=== PATIENT | female | born 1990 | race Caucasian/White ===

== ENCOUNTER 2017-08-18 16:24 | Emergency (ER) | payer MEDICAID ==
[~2017-08-18] VITALS: Ht 154.9 cm; Wt 98.6 kg
[~2017-08-18 16:24] MED LIST: PRENATAL VITAMINS
[2017-08-18] MEDS ORDERED: ONDANSETRON 2MG/ML, 2ML IVPush ONE (17:00)
[2017-08-18] MEDS ORDERED: FAMOTIDINE 20 MG/2 ML IVP ONE (17:00)
[2017-08-18] MEDS ORDERED: SODIUM CHLORIDE FLUSH 10ML SYR IVF ONE (17:00)
[2017-08-18] MEDS ORDERED: MAALOX/HYOSCYAMINE/LIDOCAINE 45 ML BTL PO ONE (17:00)
[2017-08-18] MEDS ORDERED: SODIUM CHLORIDE 0.9% 1,000ML IVBOLUS ONE (17:00)
[2017-08-18 17:12] LABS: ASPARTATE AMINO TRANSFERASE 16 U/L (15-37); BLOOD UREA NITROGEN 14 mg/dL (7-18)
[2017-08-18 17:16] LABS: HEMATOCRIT 40.8 % (34.6-47.8); HEMOGLOBIN 13.8 g/dL (11.7-16.4); WHITE BLOOD COUNT 10.8 x10^3/uL (3.4-10)
[2017-08-18] MEDS ORDERED: FAMOTIDINE 20 MG/2 ML ONE (17:20)
[2017-08-18] MEDS ORDERED: MAALOX/HYOSCYAMINE/LIDOCAINE 45 ML BTL ONE (17:20)
[2017-08-18] MEDS ORDERED: ONDANSETRON 2MG/ML, 2ML ONE (17:20)
[2017-08-18 19:17] VITALS: BP 105/56
== END 2017-08-18 19:17 | disposition home or self-care (01) ==
LOC: ED 18:17
DX: R11.2 Nausea with vomiting, unspecified (principal); R19.7 Diarrhea, unspecified; Z90.49 Acquired absence of other specified parts of digestive tract
CPT/HCPCS: 36415; 80053; 83690; 84703; 85025; 96361; 96374; 96375; 99284; J2405; J7030; S0028

== ENCOUNTER 2017-08-23 14:22 | Emergency (ER) | payer MEDICAID ==
[~2017-08-23] VITALS: Ht 154.9 cm; Wt 101.2 kg
[2017-08-23 14:25] VITALS: BP 121/81
[2017-08-23] MEDS ORDERED: OXYcodone/APAP 5/325MG TABLET PO ONE (15:00)
[2017-08-23] MEDS ORDERED: OXYcodone/APAP 5/325MG TABLET ONE (15:10)
== END 2017-08-23 15:20 | disposition home or self-care (01) ==
LOC: ED 15:16
DX: K08.89 Other specified disorders of teeth and supporting structures (principal)
CPT/HCPCS: 99283

== ENCOUNTER 2018-07-11 09:45 | Emergency (ER) | payer MEDICAID ==
[~2018-07-11] VITALS: Ht 154.9 cm; Wt 102.1 kg
[2018-07-11 10:30] LABS: BASOPHILS # (AUTO) 0.04 x10^3/uL (0-0.1); BASOPHILS % (AUTO) 1 % (0-1); EOSINOPHILS % (AUTO) 2 % (1-7); LYMPHOCYTES # (AUTO) 2.53 x10^3/uL (1-3.4); LYMPHOCYTES % (AUTO) 39 % (22-44); MD NO; MEAN CORPUSCULAR HEMOGLOBIN 26.6 pg (27.0-34.8); MEAN CORPUSCULAR HGB CONC 32.8 g/dL (32.4-35.8); MEAN CORPUSCULAR VOLUME 81.2 fL (80-100); MEAN PLATELET VOLUME 7.4 fL (7.4-10.4); MONOCYTES # (AUTO) 0.66 x10^3/uL (0.2-0.8); MONOCYTES % (AUTO) 10 % (2-9); NEUTROPHILS # (AUTO) 3.25 x10^3/uL (1.8-6.8); NEUTROPHILS % (AUTO) 49 % (42-75); PLATELET COUNT 309 x10^3/uL (130-400); RED BLOOD COUNT 4.66 x10^6/uL (3.82-5.3); RED CELL DISTRIBUTION WIDTH 16.4 % (9.6-15.2)
[2018-07-11] MEDS ORDERED: SODIUM CHLORIDE FLUSH 10ML SYR IVF ONE (10:30)
[2018-07-11] MEDS ORDERED: ONDANSETRON ODT 4 MG PO ONE (10:30)
[2018-07-11] MEDS ORDERED: SODIUM CHLORIDE 0.9% 1,000ML IVBOLUS ONE (10:30)
[2018-07-11 10:40] LABS: ALBUMIN 3.4 g/dL (3.4-5.0); ANION GAP 5 mmol/L (5-15); CALCIUM 8.5 mg/dL (8.5-10.1); CHLORIDE 109 mmol/L (98-107)
[2018-07-11] MEDS ORDERED: ONDANSETRON ODT 4 MG ONE (10:43)
[2018-07-11 10:45] LABS: CREATININE 0.67 mg/dL (0.55-1.02)
[2018-07-11 11:28] LABS: MICROSCOPIC INDICATED
[2018-07-11 11:46] LABS: CULTURE INDICATED? YES
[2018-07-11 12:00] VITALS: BP 110/72
== END 2018-07-11 12:51 | disposition home or self-care (01) ==
LOC: ED 10:01
DX: E86.0 Dehydration (principal); K52.9 Noninfective gastroenteritis and colitis, unspecified; R51 Headache; Z90.49 Acquired absence of other specified parts of digestive tract
CPT/HCPCS: 36415; 80048; 81001; 82040; 84703; 85025; 87086; 93005; 99285; J7030; Q0162

== ENCOUNTER 2018-07-26 08:35 | Emergency (ER) | payer MEDICAID ==
[~2018-07-26] VITALS: Ht 154.9 cm; Wt 79.5 kg
[2018-07-26 08:45] VITALS: BP 127/73
== END 2018-07-26 10:21 | disposition home or self-care (01) ==
LOC: ED 10:19
DX: K08.89 Other specified disorders of teeth and supporting structures (principal)
CPT/HCPCS: 99283

== ENCOUNTER 2018-08-28 08:56 | Emergency (ER) | payer MEDICAID ==
[~2018-08-28] VITALS: Ht 157.5 cm; Wt 102.1 kg
[2018-08-28 08:58] VITALS: BP 116/75
== END 2018-08-28 09:50 | disposition home or self-care (01) ==
LOC: ED 09:25
DX: K08.89 Other specified disorders of teeth and supporting structures (principal); Z90.49 Acquired absence of other specified parts of digestive tract
CPT/HCPCS: 99283

== ENCOUNTER 2018-12-26 11:35 | Emergency (ER) | payer MEDICAID ==
[~2018-12-26] VITALS: Ht 157.5 cm; Wt 99.0 kg
[2018-12-26 11:43] VITALS: BP 120/86
[2018-12-26 12:01] LABS: MEAN CORPUSCULAR HEMOGLOBIN 27.1 pg (27.0-34.8); MEAN CORPUSCULAR HGB CONC 33.5 g/dL (32.4-35.8); MEAN PLATELET VOLUME 7.7 fL (7.4-10.4); PLATELET COUNT 356 x10^3/uL (130-400); RED CELL DISTRIBUTION WIDTH 15.4 % (9.6-15.2)
[2018-12-26 12:02] LABS: HEMOGRAM NOTE RECHECKED
[2018-12-26 12:13] LABS: ALANINE AMINOTRANSFERASE 18 U/L (12-78); ALBUMIN 3.7 g/dL (3.4-5.0); ANION GAP 7 mmol/L (5-15); CALCIUM 8.6 mg/dL (8.5-10.1); CHLORIDE 109 mmol/L (98-107); CREATININE 0.76 mg/dL (0.55-1.02)
[2018-12-26 12:16] LABS: ALKALINE PHOSPHATASE 81 U/L (45-117); BILIRUBIN,TOTAL 0.5 mg/dL (0.2-1.0); TOTAL PROTEIN 7.8 g/dL (6.4-8.2)
--- NOTE | 2018-12-26 12:27 | NUR ---
PT PRESENTED TO ED D/T RIGHT MOLAR PAIN. PT STATES WAS SEEN BY DENTIST AND WAS PRESCRIBED CLIDAMYCIN AND NORCO FOR PAIN. PT STATES INCREASED PAIN WITH ABD PAIN AND NAUSEA. PT WAS ADVISED TO FOLLOW UP WITH ORAL SURGEON BUT UNABLE TO GET IN AT THIS TIME.
[2018-12-26 12:28] LABS: BASOPHILS # (AUTO) 0.06 x10^3/uL (0-0.1); BASOPHILS % (AUTO) 1 % (0-1); EOSINOPHILS # (AUTO) 0.05 x10^3/uL (0-0.4); EOSINOPHILS % (AUTO) 1 % (1-7); LYMPHOCYTES # (AUTO) 2.66 x10^3/uL (1-3.4); LYMPHOCYTES % (AUTO) 33 % (22-44); MD SCAN; MONOCYTES # (AUTO) 0.64 x10^3/uL (0.2-0.8); MONOCYTES % (AUTO) 8 % (2-9); NEUTROPHILS # (AUTO) 4.68 x10^3/uL (1.8-6.8); NEUTROPHILS % (AUTO) 58 % (42-75)
[2018-12-26] MEDS ORDERED: MAALOX/HYOSCYAMINE/LIDOCAINE 45 ML BTL ONE (12:46)
[2018-12-26] MEDS ORDERED: ONDANSETRON ODT 4 MG ONE (12:46)
--- NOTE | 2018-12-26 12:48 | NUR ---
PT MEDICATED PER EMAR.
[2018-12-26] MEDS ORDERED: MAALOX/HYOSCYAMINE/LIDOCAINE 45 ML BTL PO ONE (13:00)
[2018-12-26] MEDS ORDERED: ONDANSETRON ODT 4 MG PO ONE (13:00)
--- NOTE | 2018-12-26 13:26 | NUR ---
PT DC HOME IN A STABLE CONDITION. DC INSTRUCTIONS WERE DISCUSSED WITH PT. PT VERBALIZED UNDERSTANDING. NO FURTHER QUESTIONS OR CONCERNS WERE EXPRESSED AT THAT TIME. PT AMBULATED WITH RN TO DC DESK. STEADY GAIT.
== END 2018-12-26 13:28 | disposition home or self-care (01) ==
LOC: ED 13:20
DX: R10.84 Generalized abdominal pain (principal); R11.0 Nausea; R42 Dizziness and giddiness
CPT/HCPCS: 36415; 80053; 85025; 99283; Q0162

== ENCOUNTER 2019-03-25 00:37 | Emergency (ER) | payer MEDICAID ==
[~2019-03-25] VITALS: Ht 154.9 cm; Wt 80.0 kg
[2019-03-25 00:42] VITALS: BP 117/73
--- NOTE | 2019-03-25 00:53 | NUR ---
Dr. Ulrich at bedside to evaluate pt.
--- NOTE | 2019-03-25 01:21 | NUR ---
Patient/Caregiver given discharge instructions and they have confirmed that they understand the instructions. Patient ambulatory with steady gait.
== END 2019-03-25 01:22 | disposition home or self-care (01) ==
LOC: ED 01:16
DX: G51.0 Bell's palsy (principal)
CPT/HCPCS: 99283

== ENCOUNTER 2019-09-04 08:07 | Emergency (ER) | payer MEDICAID ==
[~2019-09-04] VITALS: Ht 154.9 cm; Wt 101.5 kg
[2019-09-04 08:08] VITALS: BP 109/71
--- NOTE | 2019-09-04 08:17 | NUR ---
BOX TRUCK DRIVER:PT AMBULATORY TO ROOM FROM LOBBY
--- NOTE | 2019-09-04 09:05 | NUR ---
Patient/Caregiver given discharge instructions and they have confirmed that they understand the instructions. Patient ambulatory with steady gait.
== END 2019-09-04 09:15 | disposition home or self-care (01) ==
LOC: ED 08:45
DX: R05 Cough (principal); J00 Acute nasopharyngitis [common cold]
CPT/HCPCS: 71046; 99283

== ENCOUNTER 2020-12-02 10:24 | Emergency (ER) | payer MEDICAID ==
[~2020-12-02] VITALS: Ht 154.9 cm; Wt 104.3 kg
--- NOTE | 2020-12-02 10:48 | NUR ---
PT COMES IN TODAY C/O N/V X2 WKS. PT STATES SHE IS 7 WKS AND "I HAVE NEVER BEEN THIS SICK BEFORE WITH A . IM BIGGER THIS TIME SO IM WORRIED I MIGHT HAVE GESTATIONAL DIABETES." PT AMBULATED BATHROOM WITH STEADY GAIT. MONITORS CONNECTED. CALL LIGHT W/IN REACH
[2020-12-02] MEDS ORDERED: ONDANSETRON ODT 4 MG PO ONE (11:00)
[2020-12-02] MEDS ORDERED: SODIUM CHLORIDE 0.9% 1,000ML IVBOLUS ONE (11:00)
[2020-12-02] MEDS ORDERED: ONDANSETRON 2MG/ML, 2ML ONE (11:03)
--- NOTE | 2020-12-02 11:16 | NUR ---
PROVIDER AT BEDSIDE FOR ASSESSEMENT. PLAN OF CARE DISCUSSED. QUESTIONS ANSWERED
[2020-12-02 11:23] LABS: MICROSCOPIC AUTO
[2020-12-02 11:27] LABS: BASOPHILS % (AUTO) 1 % (0-1); EOSINOPHILS % (AUTO) 1 % (1-7); LYMPHOCYTES % (AUTO) 29 % (22-44); MD NO; MEAN CORPUSCULAR HEMOGLOBIN 26.9 pg (27.0-34.8); MEAN PLATELET VOLUME 7.3 fL (7.4-10.4); MONOCYTES % (AUTO) 7 % (2-9); NEUTROPHILS % (AUTO) 63 % (42-75); PLATELET COUNT 330 x10^3/uL (130-400); RED BLOOD COUNT 4.89 x10^6/uL (3.82-5.3); RED CELL DISTRIBUTION WIDTH 15.8 % (9.6-15.2)
[2020-12-02 11:39] LABS: ALBUMIN 3.5 g/dL (3.4-5.0); ANION GAP 7 mmol/L (5-15); CALCIUM 9.1 mg/dL (8.5-10.1); CHLORIDE 106 mmol/L (98-107)
[2020-12-02 11:58] LABS: ALANINE AMINOTRANSFERASE 21 U/L (12-78); ALKALINE PHOSPHATASE 72 U/L (45-117); BILIRUBIN,TOTAL 0.4 mg/dL (0.2-1.0); CREATININE 0.73 mg/dL (0.55-1.02); TOTAL PROTEIN 7.9 g/dL (6.4-8.2)
--- NOTE | 2020-12-02 12:06 | NUR ---
ULTRASOUND AT BEDSIDE
--- NOTE | 2020-12-02 12:21 | NUR ---
RN AT BEDSIDE TO ASSIST W/VAG US
[2020-12-02 12:51] VITALS: BP 103/61
--- NOTE | 2020-12-02 12:51 | NUR ---
PT RESTING ON NOAH. PT STATES "I FEEL MUCH BETTER AFTER THAT NAUSEA MEDICINE". VSS. NAD. CALL LIGHT W/IN REACH.
--- NOTE | 2020-12-02 13:43 | NUR ---
PT AMBULATED TO DISCHARGE W/STEADY GAIT. PT ENCOURAGED TO FOLLOWUP DISCUSSED. PT EDUCATED TO RETURN TO THE ED W/WORSENING SYMPTOMS
== END 2020-12-02 13:46 | disposition home or self-care (01) ==
LOC: ED 11:40
DX: O21.1 Hyperemesis gravidarum with metabolic disturbance (principal); Z3A.01 Less than 8 weeks gestation of pregnancy
CPT/HCPCS: 36415; 76815; 80053; 81001; 82962; 84702; 85025; 86901; 87086; 96360; 99284; J7030; Q0162

== ENCOUNTER 2020-12-12 14:40 | Emergency (ER) | payer MEDICAID ==
[~2020-12-12] VITALS: Ht 154.9 cm; Wt 105.5 kg
[2020-12-12] MEDS ORDERED: ONDANSETRON 2MG/ML, 2ML ONE (15:09)
--- NOTE | 2020-12-12 15:27 | NUR ---
pt is a 30f complaining of nausea and vomiting for the last 3 days. She was referred by her OBGYN. She was seen a week ago for the same thing and was doing fine but its worse in the last 3 days.Continuous sp02, and cycling vitals in place. call light within reach.
[2020-12-12] MEDS ORDERED: SODIUM CHLORIDE 0.9% 1,000ML IVBOLUS ONE (15:30)
[2020-12-12] MEDS ORDERED: ONDANSETRON 2MG/ML, 2ML IVPush ONE (15:30)
[2020-12-12] MEDS ORDERED: CYAN1TAB29 PO (15:31)
[2020-12-12] MEDS ORDERED: ONDA4TAB7 PO (15:31)
[2020-12-12 15:47] LABS: BASOPHILS % (AUTO) 1 % (0-1); EOSINOPHILS % (AUTO) 1 % (1-7); LYMPHOCYTES % (AUTO) 31 % (22-44); MEAN CORPUSCULAR HEMOGLOBIN 26.9 pg (27.0-34.8); MEAN CORPUSCULAR HGB CONC 32.5 g/dL (32.4-35.8); MEAN PLATELET VOLUME 7.3 fL (7.4-10.4); MONOCYTES % (AUTO) 9 % (2-9); NEUTROPHILS % (AUTO) 59 % (42-75); PLATELET COUNT 313 x10^3/uL (130-400); RED BLOOD COUNT 4.56 x10^6/uL (3.82-5.3); RED CELL DISTRIBUTION WIDTH 15.4 % (9.6-15.2)
[2020-12-12 15:54] LABS: ALANINE AMINOTRANSFERASE 17 U/L (12-78); ALBUMIN 3.2 g/dL (3.4-5.0); ANION GAP 8 mmol/L (5-15); CALCIUM 8.7 mg/dL (8.5-10.1); CHLORIDE 107 mmol/L (98-107); CREATININE 0.65 mg/dL (0.55-1.02)
[2020-12-12 15:55] LABS: MICROSCOPIC NOT IND
[2020-12-12 16:12] LABS: ALKALINE PHOSPHATASE 74 U/L (45-117); BILIRUBIN,TOTAL 0.3 mg/dL (0.2-1.0); TOTAL PROTEIN 7.3 g/dL (6.4-8.2)
[2020-12-12 16:13] VITALS: BP 113/71
--- NOTE | 2020-12-12 16:13 | NUR ---
pt resting comfortably in bed with lights down. provider at bedside discussin poc.call light within reach.
[2020-12-12 16:24] LABS: MD NO
--- NOTE | 2020-12-12 16:52 | NUR ---
Patient/Caregiver given discharge instructions and they have confirmed that they understand the instructions. Patient ambulatory with steady gait.
== END 2020-12-12 16:54 | disposition home or self-care (01) ==
LOC: ED 15:40
DX: O21.0 Mild hyperemesis gravidarum (principal); R10.9 Unspecified abdominal pain; Z3A.08 8 weeks gestation of pregnancy
CPT/HCPCS: 36415; 80053; 81003; 83690; 84702; 85025; 96361; 96374; 99283; J2405; J7030

== ENCOUNTER 2021-02-16 11:23 | Emergency (ER) | payer MEDICAID ==
[~2021-02-16] VITALS: Ht 154.9 cm; Wt 104.5 kg
[~2021-02-16 11:23] MED LIST changes: +CYAN1TAB29 PO; +ONDA4TAB7 PO
[2021-02-16] MEDS ORDERED: SODIUM CHLORIDE FLUSH 10ML SYR IVF ONE (12:00)
[2021-02-16] MEDS ORDERED: SODIUM CHLORIDE 0.9% 1,000ML IVBOLUS ONE (12:00)
[2021-02-16] MEDS ORDERED: ONDANSETRON 2MG/ML, 2ML IVPush ONE (12:00)
[2021-02-16] MEDS ORDERED: ONDANSETRON 2MG/ML, 2ML ONE (12:06)
[2021-02-16 12:20] LABS: MICROSCOPIC INDICATED
[2021-02-16 12:46] LABS: BASOPHILS % (AUTO) 0 % (0-1); EOSINOPHILS % (AUTO) 0 % (1-7); LYMPHOCYTES % (AUTO) 26 % (22-44); MEAN CORPUSCULAR HEMOGLOBIN 27.2 pg (27.0-34.8); MEAN CORPUSCULAR HGB CONC 33.7 g/dL (32.4-35.8); MEAN PLATELET VOLUME 7.6 fL (7.4-10.4); MONOCYTES % (AUTO) 7 % (2-9); NEUTROPHILS % (AUTO) 66 % (42-75); PLATELET COUNT 277 x10^3/uL (130-400); RED BLOOD COUNT 4.78 x10^6/uL (3.82-5.3); RED CELL DISTRIBUTION WIDTH 16.2 % (9.6-15.2)
[2021-02-16 12:49] LABS: MD NO
[2021-02-16 12:51] LABS: ANION GAP 6 mmol/L (5-15); CHLORIDE 108 mmol/L (98-107)
[2021-02-16 12:53] LABS: ALANINE AMINOTRANSFERASE 24 U/L (12-78); ALKALINE PHOSPHATASE 66 U/L (45-117); BILIRUBIN,TOTAL 0.3 mg/dL (0.2-1.0); CREATININE 0.67 mg/dL (0.55-1.02); TOTAL PROTEIN 7.3 g/dL (6.4-8.2)
[2021-02-16 13:51] VITALS: BP 100/61
== END 2021-02-16 13:59 | disposition home or self-care (01) ==
LOC: ED 11:47
DX: O26.892 Other specified pregnancy related conditions, second trimester (principal); R11.2 Nausea with vomiting, unspecified; R10.12 Left upper quadrant pain; R00.0 Tachycardia, unspecified; Z3A.17 17 weeks gestation of pregnancy
CPT/HCPCS: 36415; 80053; 81001; 83690; 85025; 96361; 96374; 99283; J2405; J7030

== ENCOUNTER 2021-04-16 21:28 | Outpatient (CLI) | payer MEDICAID ==
[~2021-04-16] VITALS: Ht 154.9 cm; Wt 107.0 kg
[2021-04-16 22:15] VITALS: BP 125/59
[2021-04-16 22:22] LABS: MICROSCOPIC NOT IND
== END 2021-04-17 00:15 | disposition home or self-care (01) ==
LOC: LDOP 21:28
PROVIDERS: ATTEND Obstetrics & Gynecology
DX: O26.892 Other specified pregnancy related conditions, second trimester (principal); R10.9 Unspecified abdominal pain; Z3A.26 26 weeks gestation of pregnancy
CPT/HCPCS: 81003; 87086; 99201; 99211; G0463

== ENCOUNTER 2021-05-16 23:25 | Outpatient (CLI) | payer MEDICAID ==
[~2021-05-16] VITALS: Ht 154.9 cm; Wt 104.0 kg
[2021-05-17 00:06] VITALS: BP 113/70
== END 2021-05-17 01:01 | disposition home or self-care (01) ==
LOC: LDOP 23:25
PROVIDERS: ATTEND Obstetrics & Gynecology
DX: O36.8130 Decreased fetal movements, third trimester, not applicable or unspecified (principal); Z3A.30 30 weeks gestation of pregnancy
CPT/HCPCS: 59025; 76819

== ENCOUNTER 2021-05-19 16:02 | Outpatient (CLI) | payer MEDICAID ==
[~2021-05-19] VITALS: Ht 154.9 cm; Wt 104.5 kg
== END 2021-05-19 17:07 | disposition home or self-care (01) ==
LOC: LDOP 16:02
PROVIDERS: ATTEND Obstetrics & Gynecology
DX: O26.893 Other specified pregnancy related conditions, third trimester (principal); Z3A.30 30 weeks gestation of pregnancy
CPT/HCPCS: 59025; 82962

== ENCOUNTER 2021-06-30 03:42 | Outpatient (CLI) | payer MEDICAID ==
[~2021-06-30] VITALS: Ht 154.9 cm; Wt 105.0 kg
[2021-06-30 08:35] LABS: MICROSCOPIC INDICATED
== END 2021-06-30 08:52 | disposition home or self-care (01) ==
LOC: LDOP 03:42
PROVIDERS: ATTEND Obstetrics & Gynecology
DX: O26.893 Other specified pregnancy related conditions, third trimester (principal); R10.9 Unspecified abdominal pain; Z3A.36 36 weeks gestation of pregnancy
CPT/HCPCS: 59025; 81001; 82962

== ENCOUNTER 2021-07-11 06:10 | Inpatient (IN) | payer MEDICAID ==
[~2021-07-11] VITALS: Ht 154.9 cm; Wt 105.9 kg
[2021-07-11] MEDS ORDERED: MISOPROSTOL 200 MCG TABLET ONE (06:41)
[2021-07-11] MEDS ORDERED: LIDOCAINE 1%, 20ML ONE (06:41)
[2021-07-11] MEDS ORDERED: NEWBORN KIT ONE (06:41)
[2021-07-11] MEDS ORDERED: CALCIUM CARBONATE 500 MG TAB.CHEW PO PRN ×2 (07:00→18:30)
[2021-07-11] MEDS ORDERED: FENTANYL PF 100 MCG/2ML IVPush PRN (07:00)
[2021-07-11] MEDS ORDERED: TERBUTALINE 1 MG/ML, 1ML IVPush PRN (07:00)
[2021-07-11] MEDS ORDERED: LACTATED RINGERS 1,000 ML IV SCH ×2 (07:00→11:00)
[2021-07-11] MEDS ORDERED: TERBUTALINE 1 MG/ML, 1ML SQ PRN (07:00)
[2021-07-11] MEDS ORDERED: FENTANYL PF 100 MCG/2ML IV PRN (07:00)
[2021-07-11] MEDS ORDERED: D5%-LACTATED RINGERS 1,000 ML IV SCH (07:00)
[2021-07-11] MEDS ORDERED: OXYTOCIN 30U/ 0.9% NaCL 500ML 500 ML IV ONE (07:00)
[2021-07-11] MEDS ORDERED: OXYTOCIN 30U/ 0.9% NaCL 500ML 500 ML IV PRN (07:00)
[2021-07-11] MEDS ORDERED: ONDANSETRON 2MG/ML, 2ML IVPush PRN (07:00)
[2021-07-11 07:13] LABS: BASOPHILS % (AUTO) 0 % (0-1); EOSINOPHILS % (AUTO) 1 % (1-7); LYMPHOCYTES % (AUTO) 25 % (22-44); MEAN CORPUSCULAR HEMOGLOBIN 27.7 pg (27.0-34.8); MEAN CORPUSCULAR HGB CONC 33.7 g/dL (32.4-35.8); MONOCYTES % (AUTO) 10 % (2-9); NEUTROPHILS % (AUTO) 65 % (42-75); PLATELET COUNT 208 x10^3/uL (130-400); RED CELL DISTRIBUTION WIDTH 17.4 % (9.6-15.2)
[2021-07-11] MEDS ORDERED: INSU100I11 SQ (07:40)
[2021-07-11] MEDS ORDERED: PREN1TAB79 PO (07:40)
[2021-07-11] MEDS ORDERED: CHOL10003 PO (07:40)
[2021-07-11] MEDS ORDERED: INSU100V8 SQ (07:40)
[2021-07-11 07:43] VITALS: BP 130/70
[2021-07-11] MEDS ORDERED: BUPIVACAINE 0.25% ONE (09:59)
[2021-07-11] MEDS ORDERED: FENTANYL/BUPIV./NS/PF 250 ML EPIDCONT ONE (09:59)
[2021-07-11] MEDS ORDERED: LACTATED RINGERS 1,000 ML IVBOLUS PRN (11:00)
[2021-07-11] MEDS ORDERED: EPHEDRINE 50 MG/ML, 1ML IVPush PRN (11:00)
[2021-07-11] MEDS ORDERED: FENTANYL/BUPIV./NS/PF 250 ML EPIDCONT SCH (11:00)
[2021-07-11] MEDS ORDERED: CARBOPROST TROMETHAMINE 250 MCG/ML, 1ML IM PRN (18:30)
[2021-07-11] MEDS ORDERED: ACETAMINOPHEN 325 MG TABLET PO PRN ×2 (18:30)
[2021-07-11] MEDS ORDERED: SIMETHICONE 80 MG CHEW TAB PO PRN (18:30)
[2021-07-11] MEDS ORDERED: ONDANSETRON 2MG/ML, 2ML IV PRN (18:30)
[2021-07-11] MEDS ORDERED: METHYLERGONOVINE 0.2 MG/ML IM PRN (18:30)
[2021-07-11] MEDS ORDERED: DOCUSATE 100 MG CAPSULE PO PRN (18:30)
[2021-07-11] MEDS ORDERED: MAGNESIUM HYDROXIDE 8%, 30ML UDC PO PRN (18:30)
[2021-07-11] MEDS ORDERED: MISOPROSTOL 200 MCG TABLET PR PRN (18:30)
[2021-07-11] MEDS: OXYTOCIN 30U/ 0.9% NaCL 500ML 500 ML IV SCH (18:30)
[2021-07-11] MEDS ORDERED: METOCLOPRAMIDE 5 MG/ML, 2ML IV PRN (18:30)
[2021-07-11] MEDS ORDERED: MEASLES,MUMPS&RUBELLA VACC/PF 0.5 ML SQ-VACC PRN (18:30)
[2021-07-11] MEDS: IBUPROFEN 600 MG TABLET PO PRN (19:50)
[2021-07-11] MEDS: OXYcodone/APAP 5/325MG TABLET PO PRN ×2 (19:50→23:57)
[2021-07-11 20:50] VITALS: BP 120/75
[2021-07-12] VITALS: BP 101/65
[2021-07-12] MEDS: OXYTOCIN 30U/ 0.9% NaCL 500ML 500 ML IV SCH (02:18)
[2021-07-12] MEDS: IBUPROFEN 600 MG TABLET PO PRN ×3 (02:48→14:24)
[2021-07-12 03:14] LABS: BASOPHILS % (AUTO) 0 % (0-1); EOSINOPHILS % (AUTO) 1 % (1-7); LYMPHOCYTES % (AUTO) 22 % (22-44); MEAN CORPUSCULAR HEMOGLOBIN 27.4 pg (27.0-34.8); MEAN CORPUSCULAR HGB CONC 33.5 g/dL (32.4-35.8); MEAN PLATELET VOLUME 8.2 fL (7.4-10.4); MONOCYTES % (AUTO) 9 % (2-9); NEUTROPHILS % (AUTO) 68 % (42-75); PLATELET COUNT 184 x10^3/uL (130-400); RED BLOOD COUNT 4.33 x10^6/uL (3.82-5.3); RED CELL DISTRIBUTION WIDTH 18.1 % (9.6-15.2)
[2021-07-12 04:00] VITALS: BP 124/74
[2021-07-12] MEDS: OXYcodone/APAP 5/325MG TABLET PO PRN ×4 (04:05→17:14)
[2021-07-12 08:12] VITALS: BP 112/78
[2021-07-12] MEDS ORDERED: PRENATAL VIT/IRON/FA 1 EACH TABLET PO SCH (09:00)
[2021-07-12] MEDS ORDERED: IBUP-1222 PO (09:50)
[2021-07-12] MEDS ORDERED: OXYC1TAB12 PO (09:50)
[2021-07-12 12:00] VITALS: BP 115/78
== END 2021-07-12 17:34 | disposition home or self-care (01) | DRG 807 ==
LOC: LDIP 06:10 → 2NW 20:47
PROVIDERS: ADMIT Obstetrics & Gynecology; ATTEND Obstetrics & Gynecology
PROC: 10E0XZZ Delivery of Products of Conception, External Approach (ICD-10-PCS; principal; 2021-07-11)
PROC: 0KQM0ZZ Repair Perineum Muscle, Open Approach (ICD-10-PCS; 2021-07-11)
PROC: 3E0R3BZ Introduction of Anesthetic Agent into Spinal Canal, Percutaneous Approach (ICD-10-PCS; 2021-07-11)
PROC: 00HU33Z Insertion of Infusion Device into Spinal Canal, Percutaneous Approach (ICD-10-PCS; 2021-07-11)
DX: O24.424 Gestational diabetes mellitus in childbirth, insulin controlled (principal); Z37.0 Single live birth; O99.344 Other mental disorders complicating childbirth; O99.02 Anemia complicating childbirth; F32.9 Major depressive disorder, single episode, unspecified; D50.9 Iron deficiency anemia, unspecified; Z3A.49 Greater than 42 weeks gestation of pregnancy; O70.1 Second degree perineal laceration during delivery; Z20.822 Contact with and (suspected) exposure to COVID-19
CPT/HCPCS: 36415; 82962; 85025; 86592; 86850; 86900; 87635; 90707; G0378; J2590; J3010; J7120